=== PATIENT | female | born 1970 | race African-American/Black ===

== ENCOUNTER 2025-09-25 16:05 | Emergency (ER) | payer MEDICAID ==
[~2025-09-25] VITALS: Ht 165.1 cm; Wt 61.0 kg
[2025-09-25 16:20] VITALS: TEMP 36.7; O2SAT 98
[2025-09-25 18:12] LABS: BASOPHILS % 0.7 % (0.0-2.0); EOSINOPHILS % 6.2 % (0.0-5.0); HEMATOCRIT. 38.7 % (36.0-48.0); HEMOGLOBIN. 12.4 g/dL (12.0-16.0); LYMPHOCYTES % 28.2 % (20.0-50.0); MEAN PLATELET VOLUME 7.2 fl (7.4-10.4); MONOCYTES % 13.0 % (2.0-8.0); NEUTROPHILS % 51.9 % (40.0-76.0); PLATELET 342 x1000/uL (130-400); RED BLOOD CELL COUNT 5.11 mill/uL (4.2-5.4); RED CELL DISTRIBUTION WIDTH 21.8 % (11.6-14.6)
[2025-09-25 18:13] LABS: CREATININE 0.7 mg/dL (0.6-1.0); UREA NITROGEN BLOOD 10 mg/dL (9-23)
[2025-09-25 18:15] LABS: TROPONIN I HIGH SENSITIVITY < 4 ng/L (3.0-34)
[2025-09-25] MEDS ORDERED: ONDA-239 PO (21:00)
[2025-09-25] MEDS: ONDANSETRON 4MG ODT PO ONE (21:34)
[2025-09-25 21:49] VITALS: BP 125/85; PULSE 86; RESP 17; O2SAT 98
== END 2025-09-25 21:50 | disposition home or self-care (01) ==
LOC: ER 16:05
DX: R07.89 Other chest pain (principal); R11.0 Nausea; Z98.890 Other specified postprocedural states; Z88.0 Allergy status to penicillin
CPT/HCPCS: 99285; 71045; 80048; 85025; 84484; 36415; 93005; Q0162